=== PATIENT | female | born 1980 | race Two or more races ===

== ENCOUNTER 2020-12-26 13:40 | Outpatient (CLI) | payer OTHER | END 2020-12-26 16:00 | disposition home or self-care (01) | LOC: PRENATAL 13:40 | PROVIDERS: ATTEND Obstetrics & Gynecology Maternal & Fetal Medicine | DX: O35.0XX1 Maternal care for (suspected) central nervous system malformation in fetus, fetus 1 (principal); O35.3XX1 Maternal care for (suspected) damage to fetus from viral disease in mother, fetus 1; O98.512 Other viral diseases complicating pregnancy, second trimester; O09.522 Supervision of elderly multigravida, second trimester; Z36.89 Encounter for other specified antenatal screening; Z3A.20 20 weeks gestation of pregnancy ==

== ENCOUNTER → 2021-03-16 | Outpatient (CLI) | payer OTHER | END | disposition home or self-care (01) | LOC: PRENATAL 14:57 | PROVIDERS: ATTEND Obstetrics & Gynecology Maternal & Fetal Medicine | DX: O26.843 Uterine size-date discrepancy, third trimester (principal); O35.0XX1 Maternal care for (suspected) central nervous system malformation in fetus, fetus 1; O09.513 Supervision of elderly primigravida, third trimester; Z36.89 Encounter for other specified antenatal screening; Z3A.32 32 weeks gestation of pregnancy ==

== ENCOUNTER 2021-04-29 08:30 | Inpatient (IN) | payer OTHER ==
[~2021-04-29] VITALS: Ht 167.6 cm; Wt 3.6 kg
[2021-05-01] MEDS ORDERED: PRENATAL TABLE1 EAC2 PO (06:23)
[2021-05-01] MEDS ORDERED: AMPICILLIN PO (06:23)
[2021-05-03] MEDS ORDERED: IBUPROFEN800 MG PO (08:25)
== END 2021-05-03 10:54 | disposition home or self-care (01) | DRG 785 ==
LOC: O/R 05-01 05:20 → OB/GYN 05-01 05:20 → SURH 05-01 08:30 → LDR 05-01 08:30 → OB/GYN 05-01 10:36
PROVIDERS: ADMIT Specialist; ATTEND Specialist
PROC: 0UB70ZZ Excision of Bilateral Fallopian Tubes, Open Approach (ICD-10-PCS; 2021-05-01)
PROC: 4A1HXCZ Monitoring of Products of Conception, Cardiac Rate, External Approach (ICD-10-PCS; 2021-05-01)
PROC: 10D00Z1 Extraction of Products of Conception, Low, Open Approach (ICD-10-PCS; principal; 2021-05-01 09:15)
DX: O34.211 Maternal care for low transverse scar from previous cesarean delivery (principal); Z20.822 Contact with and (suspected) exposure to COVID-19; Z37.0 Single live birth; Z3A.38 38 weeks gestation of pregnancy; Z30.2 Encounter for sterilization